=== PATIENT | female | born 1940 | race Caucasian/White ===

== ENCOUNTER 2021-01-22 07:40 | Emergency (ER) | payer MEDICARE, OTHER ==
[~2021-01-22 07:40] MED LIST: ACETAMINOPHEN325 MG PO; ADULT TUSS100 MG/5 M PO; ALLEGRA ALLERG180 MG PO; ALLOPURINOL 10100 MG PO; ASPIRIN CHEWABL81 MG PO; CEFTRIAXONE1 GM IM; CENTRUM COMPLE1 EACH PO; D3 DOTS2000 UNIT PO; DUONEB 2.5-0.5M1 AMP INH; FEOSOL325 MG PO; KETOTIFEN FUMARA5 ML OU; LANTUS **100 UNITS/ SC; LEVOTHYROXINE25 MCG PO; LIPITOR40 MG PO; MILK OF MA400 MG/5 M PO; NORCO 5-325 TA1 EACH PO; NOVOLOG VI100 UNIT/1 SC; PRINIVIL20 MG PO; TRULICITY1.5 MG/0.5 SC; WELLBUTRIN100 MG PO; ZANTAC150 MG PO; ZOLOFT100 MG PO
[2021-01-22 08:10] LABS: BASOPHIL 0.6 % (0-2); EOSINOPHIL 0.3 % (0-7); HCT 25.4 % (37.0-47.0); HGB 7.9 g/dl (12.5-16.0); LYMPHOCYTE 8.7 % (15-48); MCH 27.9 pg (25.0-31.0); MCHC 31.1 g/dL (32.0-36.0); MCV 89.8 fL (78.0-100.0); MONOCYTE 4.1 % (0-12); MPV 10.8 fL (6.0-9.5); NEUTROPHIL 85.8 % (41-80); NRBC 0; PLT 326 K/uL (150-400); RBC 2.83 M/uL (4.20-5.40); WBC 13.3 K/uL (4.0-10.5)
[2021-01-22 08:30] LABS: ALBUMIN 3.5 g/dL (3.4-5.0); BILIRUBIN - TOTAL 0.4 mg/dL (0.2-1.0); BUN/CREAT RATIO (CALC) 25.2 RATIO; CREATININE 1.59 mg/dL (0.51-0.95); GLOBULIN (CALCULATION) 3.6 g/dL; POTASSIUM 4.7 mmol/L (3.5-5.1); TOTAL PROTEIN 7.1 g/dL (6.4-8.2)
[2021-01-22] MEDS ORDERED: CEFDINIR300 MG PO (09:51)
== END 2021-01-22 11:15 | disposition home or self-care (01) ==
LOC: FER 07:40
PROVIDERS: Emergency Medicine
DX: S01.81XA Laceration without foreign body of other part of head, initial encounter (principal); M25.562 Pain in left knee; M79.652 Pain in left thigh; M54.6 Pain in thoracic spine; M54.5 Low back pain; M25.561 Pain in right knee; M25.551 Pain in right hip; M25.552 Pain in left hip; W19.XXXA Unspecified fall, initial encounter; Y92.129 Unspecified place in nursing home as the place of occurrence of the external cause
CPT/HCPCS: 36415; 70450; 71045; 72072; 72100; 72125; 72170; 73552; 73560; 80053; 85025; J2270; J7040